=== PATIENT | female | born 1995 | race African-American/Black ===

== ENCOUNTER 2017-04-18 09:45 | Emergency (ER) | payer SELFPAY ==
[~2017-04-18] VITALS: Ht 172.7 cm; Wt 64.9 kg
[~2017-04-18 09:45] MED LIST: ALBUTEROL SULF8.5 GM INH; PREDNISONE20 MG ORAL
[2017-04-18] MEDS ORDERED: Lidocaine 1% MPF 10mg/ml 5ml INJ ONE (10:00)
--- NOTE | 2017-04-18 10:08 | Emergency Room Report ---
History of Present Illness General Chief Complaint: Laceration Source: Patient Present Illness HPI The patient states that she was in the shower and she slipped and fell and when she went to stop her fall she grabbed the metal edge of the door of the shower and lacerated her left palm. Tetanus was updated 4 years ago. She has no other injuries or complaints. Allergies: Coded Allergies: No Known Allergies (Unverified , 02/10/13) Patient History Past Medical History: see triage record, asthma Social History: Denies: smoking, alcohol use, drug use Reviewed Nursing Documentation: PMH: Agreed, PSxH: Agreed Nursing Documentation-PMH Hx Asthma: Yes Review of Systems All Other Systems: negative except mentioned in HPI Physical Exam Vital Signs Date Time Temp Pulse Resp B/P (MAP) Pulse Ox O2 Delivery O2 Flow Rate FiO2 04/18/17 09:48 97.5 74 20 112/72 99 Room Air Sp02 EP Interpretation: reviewed, normal General Appearance: no apparent distress, alert, GCS 15, non-toxic Head: normocephalic, atraumatic Eyes: bilateral eye normal inspection, bilateral eye PERRL ENT: hearing grossly normal, normal pharynx, no angioedema, normal voice Neck: full range of motion, supple/symm/no masses Respiratory: no respiratory distress, no retraction, no accessory muscle use, speaking full sentences Gastrointestinal: normal inspection Rectal: deferred Musculoskeletal: back normal, gait/station normal, normal range of motion, other - Left palm: 3 cm vertical laceration of the inferior palm. 1 mm deep. No tendon involvement. Wound explored and there is no foreign body. Neurologic: alert, oriented x3, responsive, motor strength/tone normal, sensory intact, speech normal Psychiatric: judgement/insight normal, memory normal, mood/affect normal, no suicidal/homicidal ideation Skin: normal color, no rash, warm/dry, well hydrated Procedures Splinting Splinting : Consent: Verbal Location: L. hand/wrist Pre-Made Type: velcro Splint: volar Pre-Proc Neuro Vasc Exam: normal Post-Proc Neuro Vasc Exam: normal Patient Tolerated: Well Complications: None Laceration/Wound Repair Laceration/Wound Repair : Consent: Verbal Wound Location: upper extremity Wound's Depth, Shape: superficial Wound Length (cm): 3 Wound Explored: clean Irrigated w/ Saline (ccs): 1000 Anesthesia: 1% Lidocaine Volume Anesthetic (ccs): 5 Wound Repaired With: sutures Suture Size/Type: 5:0, nylon Number of Sutures: 6 Splint Applied?: Yes Type of Splint Applied: volar Sling Applied?: No Patient Tolerated: Well Complications: None Medical Decision Making Diagnostic Impression: Primary Impression: Laceration ER Course This patient has a superficial laceration to her left palm. The wound was explored and there is no tendon involvement or foreign body identified. The patient's tetanus shot is up-to-date. The wound was sutured without competition or incident. See my procedure note. The patient patient on prophylactic antibiotics given the location and the palm of the hand. She is also placed in a splint. She is instructed to have the sutures removed in 7 days. She is given wound care precautions. She is given infection precautions and followup instructions. Last Vital Signs Date Time Temp Pulse Resp B/P (MAP) Pulse Ox O2 Delivery O2 Flow Rate FiO2 04/18/17 09:48 97.5 74 20 112/72 99 Room Air Disposition: HOME, SELF-CARE Condition: Improved Referrals: NOT CHOSEN IPA/,REFERRING (PCP) Patient Instructions: Laceration Care, Adult KIM MENDEZ D.O. Apr 18, 2017 10:08
[2017-04-18] MEDS ORDERED: KEFLEX500 MG ORAL (11:19)
[2017-04-18 11:28] VITALS: BP 121/76
== END 2017-04-18 11:28 | disposition home or self-care (01) ==
LOC: EMR 09:55
DX: S61.412A Laceration without foreign body of left hand, initial encounter (principal); W18.2XXA Fall in (into) shower or empty bathtub, initial encounter; Y92.002 Bathroom of unspecified non-institutional (private) residence as the place of occurrence of the external cause; J45.909 Unspecified asthma, uncomplicated
CPT/HCPCS: 99283

== ENCOUNTER 2018-09-03 13:10 | Emergency (ER) | payer SELFPAY ==
[~2018-09-03] VITALS: Ht 172.7 cm; Wt 59.0 kg
[~2018-09-03 13:10] MED LIST changes: +KEFLEX500 MG ORAL
--- NOTE | 2018-09-03 13:48 | NUR ---
ED Nurse Note: Pt came into the ER due to abcess behind righ tear and back of head. Pt states that she only noticed it yesterday. Denies having pain but is stating that it is tender to touch. Pt is A + O x4. Ambulatory. Skin warm to touch.
[2018-09-03 13:49] VITALS: BP 113/77
--- NOTE | 2018-09-03 14:15 | Emergency Room Report ---
History of Present Illness General Chief Complaint: Skin Rash/Abscess Source: Patient Present Illness HPI 23 YO Female presents to the ED c/O 11/05 in severity tender swollen lumps on the scalp and down the right side of her neck since yesterday. pt. denies fevers , chills, trauma or fall, denies recent illnesses or infections. Denies open wounds, itchiness or rashes. Denies recent travel. pt. reports just dying her hair for first time yesterday morning. Pt. denies hx of immune compromise, denies allergies, reports pmhx of asthma. no aggravating or relieving factors at this time. Allergies: Coded Allergies: No Known Allergies (Unverified , 02/10/13) Patient History Past Medical History: see triage record Past Surgical History: none Pertinent Family History: none Last Menstrual Period: last week Now: No Reviewed Nursing Documentation: PMH: Agreed; PSxH: Agreed Nursing Documentation-PMH Past Medical History: No History, Except For Hx Asthma: Yes Review of Systems All Other Systems: negative except mentioned in HPI Physical Exam Vital Signs Date Time Temp Pulse Resp B/P (MAP) Pulse Ox O2 Delivery O2 Flow Rate FiO2 09/03/18 13:38 98.4 69 20 98 Room Air 09/03/18 13:49 113/77 Sp02 EP Interpretation: reviewed, normal General Appearance: no apparent distress, alert, GCS 15, non-toxic Head: normocephalic, atraumatic Eyes: bilateral eye normal inspection, bilateral eye PERRL ENT: hearing grossly normal, normal voice, other Neck: full range of motion Respiratory: chest non-tender, lungs clear, normal breath sounds, speaking full sentences Cardiovascular #1: regular rate, rhythm, no edema Gastrointestinal: normal bowel sounds, non tender, soft Rectal: deferred Genitourinary: normal inspection Musculoskeletal: back normal, gait/station normal, normal range of motion, non- tender Neurologic: alert, oriented x3, responsive, motor strength/tone normal, sensory intact, speech normal, grossly normal Psychiatric: judgement/insight normal Skin: normal color, no rash, warm/dry, well hydrated Lymphatic: adenopathy - post auricular , right occipital and cervical LAD. no fluctuance, no erythema, no warmth. Medical Decision Making PA Attestation Dr. vaca is my supervising Physician whom patient management has been discussed with. Diagnostic Impression: Primary Impression: Lymphadenopathy of head and neck Additional Impression: Reactive lymphadenopathy ER Course 23 YO Female presents to the ED c/O 11/05 in severity tender swollen lumps on the scalp and down the right side of her neck since yesterday. pt. denies trauma or fall, denies recent illnesses or infections. Denies open wounds or rashes. denies recent travel. pt. reports just dying her hair for first time yesterday morning. Pt. denies hx of immune compromise, denies allergies, reports Pmhx of asthma. no aggravating or relieving factors at this time. Ddx considered but are not limited to cellulitis, allergic reaction, angio edema , abscess Vital signs: are WNL, pt. is afebrile H&PE are most consistent with allergic reaction to hair dye - lymph adenopathy. ORDERS: none required at this time, the diagnosis is clinical ED INTERVENTIONS: DISCHARGE: At this time pt. is stable for d/c to home. Will provide printed patient care instructions, and any necessary prescriptions. Care plan and follow up instructions have been discussed with the patient prior to discharge. Last Vital Signs Date Time Temp Pulse Resp B/P (MAP) Pulse Ox O2 Delivery O2 Flow Rate FiO2 09/03/18 13:49 98.3 77 20 113/77 96 Room Air Status: improved Disposition: HOME, SELF-CARE Condition: Stable Scripts Ibuprofen* (MOTRIN*) 600 Mg Tablet 600 MG ORAL THREE TIMES A DAY, #20 TAB 0 Refills Prov: Adilene Le 09/03/18 Diphenhydramine Hcl (BENADRYL ALLERGY) 25 Mg Tablet 25 MG PO Q6HR, #20 TAB Prov: Adilene Le 09/03/18 Patient Instructions: Lymphadenopathy Additional Instructions: Take medications as directed. Follow up with a Primary Care Provider in 3-5 days, even if your symptoms have resolved. --Please review list of primary care clinics, if you do not already have a primary care provider Return sooner to ED if new symptoms occur, or current symptoms become worse. Do not drink alcohol, drive, or operate heavy machinery while taking Benadryl as this may cause drowsiness. - Please note that this Emergency Department Report was dictated using [employer] assistant technology software, occasionally this can lead to erroneous entry secondary to interpretation by the dictation equipment. Adilene Le September 03, 2018 14:15
[2018-09-03] MEDS ORDERED: BENADRYL ALLERG25 M1 PO (14:16)
[2018-09-03] MEDS ORDERED: IBUPROFEN600 MG ORAL (14:16)
--- NOTE | 2018-09-03 14:23 | NUR ---
ER DISCHARGE NOTE: Patient is cleared to be discharged per ERMD, pt is aox4, on room air, with stable vital signs. pt was given dc and prescription instructions, pt was able to verbalize understanding, pt id band removed without complications. pt is able to ambulate with steady gait. pt took all belongings.
== END 2018-09-03 14:23 | disposition home or self-care (01) ==
LOC: EMR 14:15
DX: R59.1 Generalized enlarged lymph nodes (principal); R22.0 Localized swelling, mass and lump, head
CPT/HCPCS: 99282